=== PATIENT | female | born 1980 | race Caucasian/White ===

== ENCOUNTER 2017-08-28 12:27 | Emergency (ER) | payer SELFPAY ==
--- NOTE | 2017-08-28 13:02 | ER Document Report ---
ED Medical Screen (RME) - General Chief Complaint: Blood Pressure Problem Stated Complaint: BLOOD PRESSURE ISSUES Time Seen by Provider: 08/28/17 12:59 Notes: RAPID MEDICAL EVALUATION DISCLOSURE I have seen this patient as part of a Rapid Medical Evaluation and, if applicable, placed any initially appropriate orders. The patient will be seen and fully evaluated, including a full history and physical exam, by a provider ( in Main ED or Fast Track) when a room becomes available. 37-year-old female here with 3 hours of feeling confused, disoriented, dizziness described as "things are moving back and forth", bilateral hand (but not arm or forearm) numbness that started while she was at work. She has never had this before and became concerned. She does have a history of hypoglycemia but states that her usual hypoglycemic symptoms include nausea lightheadedness headache and vomiting. She denies any prior history of stroke multiple sclerosis or other demyelinating disease. EXAM Strength 5/5 all extremities Sensation intact lower extremities Sensation deficit bilateral hands but not forearm or arms TRAVEL OUTSIDE OF THE [place] IN LAST 30 DAYS: No - Related Data Allergies/Adverse Reactions: No Known Allergies Allergy (Verified 01/28/13 13:02) Past Medical History - Social History Chew tobacco use (# tins/day): No Frequency of alcohol use: Social Drug Abuse: None Pulmonary Medical History: Reports: Hx Bronchitis Neurological Medical History: Reports: Hx Migraine Renal/ Medical History: Denies: Hx Peritoneal Dialysis Past Surgical History: Reports: Hx Breast Surgery - right lumpectomy, Hx Cholecystectomy, Hx Orthopedic Surgery - knee x 5 - Immunizations Hx Diphtheria, Pertussis, Tetanus Vaccination: Yes Physical Exam - Vital signs Vitals: Temp Pulse Resp BP Pulse Ox 98.1 F 80 16 123/94 H 100 08/28/17 12:32 08/28/17 12:32 08/28/17 12:32 08/28/17 12:32 08/28/17 12:32 Course - Vital Signs Vital signs: Temp Pulse Resp BP Pulse Ox 98.1 F 80 16 123/94 H 100 08/28/17 12:32 08/28/17 12:32 08/28/17 12:32 08/28/17 12:32 08/28/17 12:32
[2017-08-28 13:52] LABS: ABSOLUTE BASOPHILS # (AUTO) 0.1 10^3/uL (0.0-0.2); ABSOLUTE EOSINOPHILS # (AUTO) 0.1 10^3/uL (0.0-0.6); ABSOLUTE LYMPHOCYTES (AUTO) 1.6 10^3/uL (0.5-4.7); ABSOLUTE MONOCYTES (AUTO) 0.4 10^3/uL (0.1-1.4); ABSOLUTE NEUT (AUTO) 6.4 10^3/uL (1.7-8.2); BASOPHILS % (AUTO) 0.7 % (0-2); EOSINOPHILS % (AUTO) 0.8 % (0-6); HEMATOCRIT 41.5 % (36.0-47.0); LYMPHOCYTES % (AUTO) 18.6 % (13-45); MEAN CORPUSCULAR HEMOGLOBIN 26.9 pg (27.0-33.4); MEAN CORPUSCULAR HGB CONC 33.8 g/dL (32.0-36.0); MEAN CORPUSCULAR VOLUME 80 fl (80-97); MONOCYTES % (AUTO) 4.5 % (3-13); PLATELET COUNT 249 10^3/uL (150-450); RED BLOOD COUNT 5.22 10^6/uL (3.72-5.28); RED CELL DISTRIBUTION WIDTH 13.4 % (11.5-14.0); SEGMENTED NEUTROPHILS % (AUTO) 75.4 % (42-78); TOTAL CELLS COUNTED % (AUTO) 100 %; WHITE BLOOD COUNT 8.4 10^3/uL (4.0-10.5)
[2017-08-28 14:09] LABS: ANION GAP 14 (5-19); BLOOD UREA NITROGEN 9 mg/dL (7-20); CARBON DIOXIDE 25 mmol/L (22-30); CHLORIDE 107 mmol/L (98-107); GLUCOSE 88 mg/dL (75-110); PHOSPHORUS 3.4 mg/dL (2.5-4.5); POTASSIUM 3.9 mmol/L (3.6-5.0); SODIUM 146.4 mmol/L (137-145)
--- NOTE | 2017-08-28 14:52 | RADIOLOGY REPORT (SQ) ---
EXAM DESCRIPTION: CT HEAD WITHOUT COMPLETED DATE/TIME: 08/28/2017 2:12 pm REASON FOR STUDY: confusion, hand numbness, dizziness COMPARISON: 07/25/2008. TECHNIQUE: Axial images acquired through the brain without intravenous contrast. Images reviewed wi th bone, brain and subdural windows. Additional sagittal and coronal reconstructions were generated. Images stored on PACS. All CT scanners at this facility use dose modulation, iterative reconstruction, and/or weight based d osing when appropriate to reduce radiation dose to as low as reasonably achievable (ALARA). [facility]: Dose Right [facility]: CareDose [facility]: Dose Right [facility]: Teradose 4D [facility]: [employer] RADIATION DOSE: CT Rad equipment meets quality standard of care and radiation dose reduction techniq ues were employed. CTDIvol: 53.2 mGy. DLP: 1044 mGy-cm. mGy. LIMITATIONS: None. FINDINGS: VENTRICLES: Normal size and contour. CEREBRUM: No masses. No hemorrhage. No midline shift. No evidence for acute infarction. Normal gra y/white matter differentiation. No areas of low density in the white matter. CEREBELLUM: No masses. No hemorrhage. No alteration of density. No evidence for acute infarction. EXTRAAXIAL SPACES: No fluid collections. No masses. ORBITS AND GLOBE: No intra- or extraconal masses. Normal contour of globe without masses. CALVARIUM: No fracture. PARANASAL SINUSES: Mucosal nodule in the left maxillary sinus. No fluid levels. SOFT TISSUES: No mass or hematoma. OTHER: No other significant finding. IMPRESSION: NORMAL BRAIN CT WITHOUT CONTRAST. EVIDENCE OF ACUTE STROKE: NO. COMMENT: Quality ID # [id number]: Final reports with documentation of one or more dose reduction techniques (e.g., Automated exposure control, adjustment of the mA and/or kV according to patient size, use of iterative reconstruction technique) TECHNICAL DOCUMENTATION: JOB ID: [id number] [employer]- All Rights Reserved Reading location - IP/workstation name: [email or web address]
--- NOTE | 2017-08-28 16:15 | ER Document Report ---
ED General - General Chief Complaint: Blood Pressure Problem Stated Complaint: BLOOD PRESSURE ISSUES Time Seen by Provider: 08/28/17 12:59 Notes: Patient was at her work this morning about 10 AM, sitting at a computer, when she began to have an aura with her vision. She has migraine headaches and she does not have a headache with this illness today, but the aura is the same as she has had with her migraine headaches in the past. Both of her hands began to feel numb and then she felt as if she could not get words out. When she did get words out they did not make sense. She seemed to be confused disoriented. She has had a bagel and coffee this morning before going to work but ate something else when these symptoms were occurring to see if she might possibly be low on her blood sugar. She went to the nurse who checked her blood pressure was 136/96 and the nurse advised her to be checked for her symptoms. Patient denies any chest pains or shortness of breath. Denies any recent illness. No fevers. 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 She has had multiple knee surgeries and her gallbladder removed. She is on Depo-Provera injections for control and her last injection was June 21. Patient's had migraine headaches all her life, but had a trigger point injected above her left ear over a year ago and has not had a migraine headache since that injection. Does not take any other medications. TRAVEL OUTSIDE OF THE [place] IN LAST 30 DAYS: No - Related Data Allergies/Adverse Reactions: No Known Allergies Allergy (Verified 08/28/17 13:00) Past Medical History - Social History Smoking Status: Never Smoker Chew tobacco use (# tins/day): No Frequency of alcohol use: Social Drug Abuse: None Family History: Reviewed & Not Pertinent, CAD - Grandfather Patient has suicidal ideation: No Patient has homicidal ideation: No Pulmonary Medical History: Reports: Hx Bronchitis Neurological Medical History: Reports: Hx Migraine Endocrine Medical History: Denies: Hx Diabetes Mellitus Type 1, Hx Diabetes Mellitus Type 2 Psychiatric Medical History: Reports: None, Other - See HPI. Past Surgical History: Reports: Hx Breast Surgery - right lumpectomy, Hx Cholecystectomy, Hx Orthopedic Surgery - knee x 5 - Immunizations Hx Diphtheria, Pertussis, Tetanus Vaccination: Yes Review of Systems - Review of Systems Notes: REVIEW OF SYSTEMS: CONSTITUTIONAL : Denies fever. EENT: Denies eye, ear, nose or mouth or throat pain or other symptoms. CARDIOVASCULAR: Denies chest pain. RESPIRATORY: Denies cough, chest congestion, or shortness of breath. GASTROINTESTINAL: Denies abdominal pain or nausea, vomiting, or diarrhea. GENITOURINARY: Denies difficulty or painful urinating, urinary frequency, blood in urine. MUSCULOSKELETAL: Denies back or neck pain. Denies joint pain or swelling. SKIN: Denies rash or skin lesions. NEUROLOGICAL: Has numbness of both hands and fingers of both hands. Denies LOC. Denies headache. Denies motor deficits. ALL OTHER SYSTEMS REVIEWED AND NEGATIVE. Physical Exam - Vital signs Vitals: Temp Pulse Resp BP Pulse Ox 98.1 F 80 16 123/94 H 100 08/28/17 12:32 08/28/17 12:32 08/28/17 12:32 08/28/17 12:32 08/28/17 12:32 Blood pressure 123/94 Interpretation: Normal - Notes Notes: PHYSICAL EXAMINATION: GENERAL: Well-appearing, in no acute distress. Blood pressure 123/94 in triage. Anxious. HEAD: Atraumatic, normocephalic. EYES: Pupils equal round and reactive to light, extraocular movements intact. ENT: oropharynx clear without exudates. Moist mucous membranes. NECK: Normal range of motion, supple. No bruits heard in either carotid artery. LUNGS: Breath sounds clear and equal bilaterally. HEART: Regular rate and rhythm without murmurs. No palpitations, irregular beats, tachycardias, etc. ABDOMEN: Soft, nontender. No guarding or rebound. No masses. BACK: No tenderness throughout entire back. EXTREMITIES: Normal range of motion without pain. NEUROLOGICAL: Normal speech, normal gait. Normal sensory, motor, and reflex exams. Awake, alert, and oriented x3. Cranial nerves normal. PSYCH: Normal mood, normal affect. SKIN: Warm, dry. Patient has a 3 cm diameter round red lesion in the lower inner aspect of the right lower leg which she said she noticed yesterday. She did not even remember to tell me about this lesion when I was doing my history and physical. It was only at the time we were discharging her did the patient' s friend mention this lesion. She did not see any ticks and does not know what may have bitten her. It does not itch like a mosquito bite. It does not have any central clearing now, although the patient does have a picture of this lesion yesterday which seemed to be relatively clear center with red around it. There is no lymphangitis. No fluctuance. I told the patient that I do not think there is any reason to do Lyme titers or any other titer studies because there has only been 24 hours in which the body would have had time to create the antibodies detectable for those tests. It also seems unlikely that it is going to be Lyme's and that the patient never sought take much less and 1 attached to her. If this does not resolve promptly, in the next few days, or if it appears to worsen in any way, I advised her to follow-up with her primary care physician or return here for reevaluation. This lesion has the appearance of a localized allergic reaction to an insect bite and does not appear to be an infectious cellulitis. Course - Re-evaluation Re-evalutation: 08/28/17 19:41 Patient symptoms are difficult to explain from a medical point of view. The symptoms that are bilateral and symmetrical certainly seem to preclude a localizing lesion. That would leave metabolic or toxic or psychological causes for her symptoms. Her workup is completely normal even though her blood pressure is just very barely minimally elevated. I think the patient has some degree of anxiety contributing to her symptoms. I have offered her a prescription for Vistaril to try for continued symptoms. I told the patient if she has the same or worsening symptoms tomorrow, to return for reevaluation. I might consider doing an MRI to be sure she does not have some sort of demyelinating process going on, although her symptoms do not sound like it to me. - Vital Signs Vital signs: Temp Pulse Resp BP Pulse Ox 98.1 F 73 17 138/89 H 100 08/28/17 16:08 08/28/17 16:08 08/28/17 16:08 08/28/17 16:08 08/28/17 16:08 - Laboratory Result Diagrams: 08/28/17 13:29 08/28/17 13:29 Laboratory results interpreted by me: 08/28/17 08/28/17 13:29 13:29 [facility] 26.9 L Sodium 146.4 H - Diagnostic Test Radiology reviewed: Image reviewed, Reports reviewed - CT head was normal. - EKG Interpretation by Me EKG shows normal: Sinus rhythm Rate: Normal Rhythm: NSR Additional EKG results interpreted by me: 08/28/17 19:40 EKG is normal. Discharge - Discharge Clinical Impression: Visual changes, Numbness Condition: Stable Disposition: HOME, SELF-CARE Additional Instructions: Altered Mental Status An altered mental status is a change in the normal functioning of the brain. This alteration of function can range from minor decreased brain function with some forgetfulness and confusion to complete loss of consciousness and coma. There are many possible causes of an altered mental status and include brain injuries such as trauma or strokes, problems with oxygen supply to the brain, fever and infections of the brain and/or elsewhere in the body, metabolic abnormalities such as low or high blood sugar, overdoses or excessive medication ingestion, and mental and psychiatric illnesses. Sometimes the altered mental status resolves and a definite cause is not determined. If a cause for your altered mental status was found, it has likely been corrected. Your evaluation has not shown any condition that requires that you be admitted to the hospital. It is believed that you are safe to leave and return to your home. If you have a return of your symptoms, you should return for re-evaluation. NORMAL EXAM AND WORKUP: At this time, your examination and workup show no significant abnormality. No significant abnormal physical findings were noted. All laboratory, EKG, and imaging (x-ray, CT scans, ultrasound) studies that were ordered show no significant abnormality. Although your examination and all studies that were ordered showed no significant abnormal finding, there are no examinations and no studies that are 100% accurate. There is always the possibility that some abnormality could exist and not be detected with physical examination or within the limits and capabilities of laboratory and other studies. You should return or follow up as you were instructed on your visit today for further evaluation if your symptoms do not resolve. Aspirin Aspirin has been shown to have a beneficial effect on blood circulation by reducing the clotting effect of platelets in the blood. These beneficial effects can be achieved by taking just a single baby (62.5 mg) aspirin a day. It is recommended that any person over the age of forty take a single baby aspirin every day for heart and brain circulation, unless you are allergic to aspirin or have some significant bleeding disorder. It is strongly recommended that people who have proven cardiac or blood circulation disturbances should take a baby aspirin every day. Anxiety The physician feels that some of your health problems are being caused by anxiety. Anxiety affects your health in many ways. Anxiety alone can cause palpitations, sweats, chest pains, abdominal pains, shortness of breath, and headaches. It contributes to ulcer disease, high blood pressure, irritable bowel syndrome, and has been shown to cause flare-ups of many other diseases. Anxiety is not a simple disorder to treat. If the anxiety is due to recent life stresses, you may simply need time to "work through" the changes. If the anxiety is due to an underlying unhappiness with yourself or due to psychiatric disturbance, professional help will be needed. Your physician can refer you for further help if needed. Anti-anxiety medication is occasionally given if the stress is acute or if you are having trouble sleeping. Chronic or frequent use of these medications is not a good idea because the body becomes reliant on it, preventing you from dealing with life's normal stresses. Vistaril You have been given a prescription for Vistaril, to take if you have symptoms. It will relax you and sedate you slightly, but it is non-addicting and not narcotic and will not cause you any long-term harm. FOLLOW-UP CARE: If you have been referred to a physician for follow-up care, call the physician s office for an appointment as you were instructed or within the next two days. If you experience worsening or a significant change in your symptoms, notify the physician immediately or return to the Emergency Department at any time for re-evaluation. Follow-up with your primary care physician for further evaluation if you continue to have symptoms. There are some other studies, including a possible MRI of your brain, might be indicated if you continue having symptoms. Prescriptions: Hydroxyzine Pamoate [Vistaril 25 mg Capsule] 25 mg PO QIDP PRN #15 capsule PRN Reason: Forms: Return to Work
[2017-08-28 17:08] VITALS: BP 138/89
--- NOTE | 2017-08-28 22:10 | EKG REPORT ---
SEVERITY:- NORMAL ECG - SINUS RHYTHM : Confirmed by: Ruth Valdez MD 28-Aug-2017 22:08:36
== END 2017-08-28 16:35 | disposition home or self-care (01) ==
LOC: ER 12:27
DX: H53.8 Other visual disturbances (principal); R20.0 Anesthesia of skin; R29.818 Other symptoms and signs involving the nervous system; L98.9 Disorder of the skin and subcutaneous tissue, unspecified; F41.9 Anxiety disorder, unspecified; Z86.69 Personal history of other diseases of the nervous system and sense organs; Z79.3 Long term (current) use of hormonal contraceptives
CPT/HCPCS: 36415; 70450; 80048; 81025; 83735; 84100; 85025; 93005; 93010; 99284